=== PATIENT | female | born 1985 | race Caucasian/White ===

== ENCOUNTER 2021-08-29 11:29 | Emergency (ER) | payer OTHER ==
[~2021-08-29] VITALS: Ht 157.5 cm; Wt 49.9 kg
[2021-08-29] MEDS ORDERED: ONDA4ODT (14:01)
[2021-08-29] MEDS ORDERED: HYDROCODONE-AC1 EA15 PO (14:01)
[2021-08-29] MEDS ORDERED: HYDR1TAB94 PO (15:25)
== END 2021-08-29 16:23 | disposition home or self-care (01) ==
LOC: ER 11:29
DX: S42.301A Unspecified fracture of shaft of humerus, right arm, initial encounter for closed fracture (principal); V89.2XXA Person injured in unspecified motor-vehicle accident, traffic, initial encounter
CPT/HCPCS: 73060; 96372; 99283-25; A9270; J1885